=== PATIENT | female | born 1995 | race Two or more races ===

== ENCOUNTER 2024-05-03 15:39 | Emergency (ER) | payer OTHER ==
[~2024-05-03] VITALS: Ht 172.7 cm; Wt 74.8 kg
[2024-05-03] MEDS ORDERED: IRON CHEWS15 MG PO (15:55)
[2024-05-03] MEDS ORDERED: PRENATA CHEWAB1 EACH PO (15:55)
[2024-05-03 17:56] LABS: HEMATOCRIT 33.3 % (36.0-45.00); HEMOGLOBIN 11.4 g/dL (12.0-15.00); MEAN CELL VOLUME 85.2 fL (80.00-100.00); MEAN CORPUSCULAR HEMOGLOBIN 29.3 pg (27.00-32.0); MEAN CORPUSCULAR HGB CONC 34.4 g/dl (32.0-36.0); PLATELET COUNT 251 K/uL (150-450); RED CELL DISTRIBUTION WIDTH 13.1 % (11.5-14.5)
[2024-05-03 18:24] LABS: PH,URINE 7.5 (5.0-8.0); URINE APPEARANCE Cloudy; URINE BILIRRUBIN Negative (NEGATIVE); URINE BLOOD Negative; URINE COLOR Yellow; URINE GLUCOSE Negative (NEGATIVE); URINE LEUKOCYTE Negative; URINE NITRATE Negative; URINE PROTEIN Negative (NEGATIVE); URINE UROBILINOGEN 0.2 E.U./dl
[2024-05-03 18:26] LABS: URINE BACTERIA 385.4 uL (0.0-1933); URINE EPITHELIAL CELLS 17.3 uL (0.0-38.8); URINE WBC 2.6 uL (0.0-23.2)
[2024-05-03 18:40] LABS: URINE RBC 0.6 uL (0.0-20.8)
[2024-05-03 19:00] LABS: ALBUMIN 3.1 gm/dL (3.4-5.0); BILIRUBIN TOTAL 0.31 mg/dL (0.3-1.2); CREATININE SERUM 0.48 mg/dL (0.55-1.02); GFR 155.14; GLOBULINA 4.2 G/DL (2.4-3.5); POTASSIUM 3.9 mEq/L (3.5-5.1); TOTAL PROTEIN 7.3 gm/dL (6.4-8.2)
== END 2024-05-03 19:42 ==
LOC: ER 15:40
PROVIDERS: Nurse Practitioner Family
DX: O26.893 Other specified pregnancy related conditions, third trimester (principal); Z3A.30 30 weeks gestation of pregnancy; Z20.822 Contact with and (suspected) exposure to COVID-19

== ENCOUNTER 2024-06-03 14:18 | Outpatient (CLI) | payer OTHER ==
[~2024-06-03 14:18] MED LIST: IRON CHEWS15 MG PO; PRENATA CHEWAB1 EACH PO
== END 2024-06-03 14:55 | disposition home or self-care (01) ==
LOC: NST 14:18
PROVIDERS: ATTEND Obstetrics & Gynecology
DX: Z34.82 Encounter for supervision of other normal pregnancy, second trimester (principal)

== ENCOUNTER 2024-06-10 09:20 | Inpatient (IN) | payer OTHER ==
[~2024-06-10] VITALS: Ht 172.7 cm; Wt 80.7 kg
[2024-07-01] VITALS (9 sets, daily range): BP systolic 103–130; BP diastolic 70–96
[2024-07-01] MEDS ORDERED: RINGERS SOLUTION,LACTATED 1,000 ML IV SCH (04:00)
[2024-07-01] MEDS ORDERED: CHLORHEXIDINE GLUCONATE 120 ML BOTTLE TOP ONE ×2 (04:30→09:45)
[2024-07-01] MEDS ORDERED: OXYTOCIN 20 UNITS/1000ML RL PIGGYBAG IV ONE (04:30)
[2024-07-01] MEDS ORDERED: ERYTHROMYCIN BASE OPHT 1GM EACH TUBE OP ONE ×2 (04:30→09:45)
[2024-07-01] MEDS ORDERED: LIDOCAINE HCL 1% 10ML VIAL ONE (04:31)
[2024-07-01 05:00] LABS: INR < 0.93; PARTIAL THROMBOPLASTIN TIME 25.6 SECONDS (22.0-34.0); PROTHROMBIN TIME 9.8 SECONDS (9.0-11.5)
[2024-07-01 05:03] LABS: HEMATOCRIT 35.6 % (36.0-45.00); MEAN CELL VOLUME 87.1 fL (80.00-100.00); MEAN CORPUSCULAR HEMOGLOBIN 29.4 pg (27.00-32.0); MEAN CORPUSCULAR HGB CONC 33.8 g/dl (32.0-36.0); PLATELET COUNT 257 K/uL (150-450); RED BLOOD COUNT 4.09 M/uL (4.00-6.00); RED CELL DISTRIBUTION WIDTH 14.8 % (11.5-14.5)
[2024-07-01 05:05] LABS: ALBUMIN 2.6 gm/dL (3.4-5.0); BILIRUBIN TOTAL 0.2 mg/dL (0.3-1.2); CALCIUM 8.9 mg/dL (8.5-10.1); CREATININE SERUM 0.54 mg/dL (0.55-1.02); GFR 135.42; GLOBULINA 3.8 G/DL (2.4-3.5); POTASSIUM 4.07 mEq/L (3.5-5.1); TOTAL PROTEIN 6.4 gm/dL (6.4-8.2)
[2024-07-01] MEDS ORDERED: MORPHINE SULFATE 4 MG/ML CARTRIDGE IV PRN (06:30)
[2024-07-01] MEDS ORDERED: OXYTOCIN 500 ML IV ONE (08:30)
[2024-07-01] MEDS ORDERED: OXYTOCIN 20 UNITS/1000ML RL PIGGYBAG IV SCH (09:45)
[2024-07-01] MEDS ORDERED: CHLORHEXIDINE GLUCONATE 120 ML BOTTLE TP SCH (11:15)
[2024-07-01] MEDS ORDERED: OXYTOCIN 1,000 ML IV SCH (11:15)
[2024-07-01] MEDS ORDERED: IBUprofen 400 MG TABLET PO PRN (11:15)
[2024-07-02] VITALS: BP 103/69
[2024-07-02 06:30] LABS: HEMATOCRIT 31.7 % (36.0-45.00); HEMOGLOBIN 10.5 g/dL (12.0-15.00); MEAN CELL VOLUME 87.4 fL (80.00-100.00); MEAN CORPUSCULAR HEMOGLOBIN 28.9 pg (27.00-32.0); PLATELET COUNT 230 K/uL (150-450); RED BLOOD COUNT 3.62 M/uL (4.00-6.00); RED CELL DISTRIBUTION WIDTH 14.8 % (11.5-14.5)
[2024-07-02 08:48] VITALS: BP 119/80
[2024-07-02 17:55] VITALS: BP 104/70
[2024-07-03 02:12] VITALS: BP 117/79
[2024-07-03 08:00] VITALS: BP 109/73
== END 2024-07-03 13:30 | disposition home or self-care (01) | DRG 807 ==
LOC: LDR 07-01 03:46 → OB/GYN 07-01 11:12 → LDR 07-08 09:18
PROVIDERS: Obstetrics & Gynecology; ADMIT Obstetrics & Gynecology; ATTEND Obstetrics & Gynecology
PROC: 10E0XZZ Delivery of Products of Conception, External Approach (ICD-10-PCS; principal; 2024-07-01)
PROC: 0UQG7ZZ Repair Vagina, Via Natural or Artificial Opening (ICD-10-PCS; 2024-07-01)
PROC: 4A1HXCZ Monitoring of Products of Conception, Cardiac Rate, External Approach (ICD-10-PCS; 2024-07-01)
DX: O71.4 Obstetric high vaginal laceration alone (principal); Z37.0 Single live birth; Z3A.38 38 weeks gestation of pregnancy; Z20.822 Contact with and (suspected) exposure to COVID-19

== ENCOUNTER 2024-06-20 12:43 | Outpatient (CLI) | payer OTHER | END 2024-06-20 13:31 | disposition home or self-care (01) | LOC: NST 12:43 | PROVIDERS: ATTEND Obstetrics & Gynecology | DX: Z34.83 Encounter for supervision of other normal pregnancy, third trimester (principal) ==

== ENCOUNTER 2024-06-30 11:09 | Outpatient (CLI) | payer OTHER | END 2024-06-30 12:42 | disposition home or self-care (01) | LOC: NST 11:09 | PROVIDERS: ATTEND Obstetrics & Gynecology | DX: Z34.83 Encounter for supervision of other normal pregnancy, third trimester (principal) ==